=== PATIENT | female | born 1930 | race Caucasian/White ===

== ENCOUNTER 2018-08-16 19:28 | Inpatient (IN) | payer OTHER, MEDICAID ==
[~2018-08-16] VITALS: Ht 149.9 cm; Wt 36.3 kg
--- NOTE | 2018-08-16 19:48 | NUR ---
BIBDAUGHTER FROM HOME C/O "HANDS TURNING BLUE", C/O OF SOB AND DYSURIA; PT ALERT, AWAKE, NAD NOTED ,VSS, PENDING ER PROVIDER [place]
--- NOTE | 2018-08-16 20:00 | NUR ---
CALLED 'S OFFICE, AGUSTO UMANZOR NP PROJECT LEAD, TRANSFERRED CALL TO DR. RIVAS
[2018-08-16 20:23] LABS: BASOPHILS # (AUTO) 0.1 /CMM (0.0-0.2); EOSINOPHILS % (AUTO) 4.2 % (0.0-6.0); HEMATOCRIT 44 % (33-45); HEMOGLOBIN 14.4 g/dL (11.5-14.8); LYMPHOCYTES # (AUTO) 1.9 /CMM (0.8-4.8); LYMPHOCYTES % (AUTO) 24.3 % (20.0-44.0); MEAN CORPUSCULAR HGB CONC 33 g/dl (31.0-36.0); MEAN CORPUSCULAR VOLUME 94 fL (82-100); MONOCYTES # (AUTO) 0.6 /CMM (0.1-1.30); MONOCYTES % (AUTO) 8.3 % (2.0-12.0); NEUTROPHILS # (AUTO) 4.8 /CMM (1.8-8.9); NEUTROPHILS % (AUTO) 62.2 % (43.0-81.0); PLATELET COUNT (AUTO) 168 /CMM (150-450); RED BLOOD CELL COUNT(AUTO) 4.71 MIL/uL (4.0-5.2); WHITE BLOOD COUNT (AUTO) 7.7 K/uL (4.3-11.0)
[2018-08-16 21:40] LABS: CALCIUM, SERUM 8.9 mg/dL (8.5-10.1); CARBON DIOXIDE 28 mmol/L (21-32); CHLORIDE 109 mmol/L (98-107); CREATININE 1.7 mg/dL (0.6-1.3); GLUCOSE 82 mg/dL (74-106); POTASSIUM 5.1 mmol/L (3.5-5.1); SODIUM SERUM 144 mmol/L (136-145); UREA NITROGEN, BLOOD 28 mg/dL (7-18)
[2018-08-16 21:45] LABS: ALANINE AMINOTRANSFERASE 21 U/L (12-78); ALBUMIN 3.4 g/dL (3.4-5.0); ALKALINE PHOSPHATASE 118 U/L (46-116); ASPARTATE AMINOTRANSFERASE 14 U/L (15-37); BILIRUBIN,DIRECT 0.1 mg/dL (0.0-0.2); BILIRUBIN,TOTAL 0.3 mg/dL (0.2-1.0); TOTAL PROTEIN, SERUM 6.6 g/dL (6.4-8.2)
--- NOTE | 2018-08-16 22:14 | NUR ---
CALLED AGUSTO UMANZOR NP, LEFT MESSAGE ON VOICEMAIL
--- NOTE | 2018-08-16 22:20 | NUR ---
ON PHONE WITH AGUSTO UMANZOR NP.
[2018-08-16] MEDS ORDERED: IV NS 0.9% 1,000 ML BAG IV ONE (22:30)
--- NOTE | 2018-08-16 22:33 | NUR ---
CALLED NURSING SUP. FOR MS BED
[2018-08-16 22:36] LABS: APPEARANCE,URINE SL CLOUDY (CLEAR); BILIRUBIN,URINE 1+ (NEGATIVE); BLOOD, URINE NEGATIVE Ery/uL (NEGATIVE); COLOR,URINE YELLOW (YELLOW); KETONES,URINE TRACE (NEGATIVE); LEUKOCYTE ESTERASE ,URINE 1+ (NEGATIVE); NITRITE, URINE NEGATIVE (NEGATIVE); PROTEIN,URINE 1+ mg/dl (NEGATIVE); UGLUCOSE NEGATIVE (NEGATIVE); UROBILINOGEN,URINE 0.2 EU/dL (0.2)
[2018-08-16 22:44] LABS: BACTERIA,URINE Moderate /HPF (None Seen); SQUAMOUS EPITHELIAL CELL,UR Moderate /HPF (None Seen); WBC,URINE 51-80 /HPF (0-3)
[2018-08-17] MEDS ORDERED: APIX2.5T PO (00:27)
--- NOTE | 2018-08-17 00:37 | NUR ---
REPORT GIVEN TO EVELYN MARIE FOR JULI; PT WILL BE TRANSPORTED TO 3RD FLOOR VIA [facility]
[2018-08-17] MEDS ORDERED: CLONIDINE HCL 0.1 MG TABLET PO PRN (02:00)
--- NOTE | 2018-08-17 03:16 | NUR ---
EVELYN MS ADMITTING NOTES RECEIVED PT FROM ER VIA [facility] ACCOMPANIED BY TWO DAUGHTERS. PT AWAKE ALERT ORIENTEDX2-3, BREATHING EVEN AND UNLABORED ON ROOM AIR, NO COUGH, NO CONGESTION. NO COMPLAINT OF PAIN OR DISCOMFORT AT THIS TIME PER PT. BP 180/[address] GHOSH ACCPETEY SON THE L AC 20G SL PATENT AND FLUSHING. BED IN LOWERS LOCKED POSITION, CALL LIGHT WITHIN REACH AT THIS TIME, WILL CONTINUE TO MONITOR. Addendum: 08/17/18 at 0325 by FRANK WELCH RN NOTE FROM [id number]
--- NOTE | 2018-08-17 03:25 | NUR ---
NIKITA TORRES ORDERED CLONIDINE .1MG Q4HRS PRN, ADMINISTERED, BP NOW 140/80
[2018-08-17 03:34] VITALS: BP 192/87
--- NOTE | 2018-08-17 06:25 | NUR ---
PORTFOLIO LEAD CLOSING PT SLEEPING EASILY AROUSED TO TOUCH OR NAME CALL, BREATHING EVEN AND UNLABORED ON ROOM AIR, NO COUGH, NO CONGESTION. NO COMPLAINT OF PAIN OR DISCOMFORT AT THIS TIME PER PT. LAST BT OF . IV ACCES SON THE L AC 20G SL PATENT AND FLUSHING. BED IN LOWERS LOCKED POSITION, CALL LIGHT WITHIN REACH AT THIS TIME, WILL ENDORSE TO DAY NURSE FOR JULI
[2018-08-17 08:00] VITALS: BP 170/77
--- NOTE | 2018-08-17 08:00 | NUR ---
ROSTER CLERK AM NOTES RECEIVED PT AWAKE ALERT ORIENTEDX2-3, BREATHING EVEN AND UNLABORED ON ROOM AIR, NO COUGH, NO CONGESTION. NO COMPLAINT OF PAIN OR DISCOMFORT AT THIS TIME PER PT. BP 170/77 WITH L AC 20G SL INTACT,PATENT AND FLUSHING. BED IN LOWERS LOCKED POSITION, CALL LIGHT WITHIN REACH AT THIS TIME, WILL CONTINUE TO MONITOR.
[2018-08-17] MEDS: METOPROLOL TARTRATE 25 MG TABLET PO SCH ×2 (09:51→21:42)
[2018-08-17] MEDS: AMLODIPINE BESYLATE 10 MG TABLET PO SCH (09:52)
--- NOTE | 2018-08-17 12:00 | NUR ---
PT'S DTR WANTED PT TO BE DC'D TO SNF BECAUSE OF PT'S HEALTH CONDITION BEING A SMOKER AND HAS DEMENTIA.PT LIVES ALONE IN HER HOUSE AND IS AT RISK TO HAVE A FIRE IN HER HOUSE.DTR STATED THAT DR CORTEZ IS AWARE.
[2018-08-17 16:00] VITALS: BP 127/56
--- NOTE | 2018-08-17 17:15 | NUR ---
PT RESTING IN BED DENYING ANY PAIN OR DISTRESS.CALL LIGHT PLACED WITHIN REACH.
[2018-08-17] MEDS: CEFTRIAXONE 1 G in IV D5W 50 ML IV SCH (18:50)
--- NOTE | 2018-08-17 19:35 | NUR ---
RN OPENING NOTES RECEIVED REPORT FROM DAYSHIFT RN LYDIA. FOUND Pt AWAKE, RESTING IN BED COMFORTABLY. NO S/S OF ACUTE DISTRESS OR SOB NOTED. RESPIRATIONS EVEN AND UNLABORED. FAMILY VISITING AT BEDSIDE. Pt IS A/OX4, VERBAL, ABLE TO MAKE NEEDS KNOWN. NO C/O PAIN AT THIS TIME. Pt IS AMB WITH ASSIST WITH FWW. IV ACCESS ON LAC #20G, SL. SAFETY MEASURES IN PLACE. BED LOW, LOCKED, HOB ELEVATED, SIDE RAILS UP, CALL LIGHT AND BEDSIDE TABLE WITHIN REACH. WILL CONTINUE TO MONITOR Pt's CONDITION AND SAFETY THROUGHOUT THE NIGHT.
[2018-08-17 20:00] VITALS: BP 137/70
--- NOTE | 2018-08-18 07:00 | NUR ---
RN CLOSING NOTES NO SIGNIFICANT CHANGES IN Pt's CONDITION DURING THE NIGHT. Pt REMAINS STABLE PER BASELINE. NO S/S OF ACUTE DISTRESS OR SOB NOTED. Pt RESTING IN BED. RESPIRATIONS EVEN AND UNLABORED. ALL NEEDS MET AND ATTENDED TO. SAFETY MEASURES IN PLACE. WILL ENDORSE TO DAYSHIFT RN FOR Pt's JULI.
--- NOTE | 2018-08-18 07:10 | NUR ---
MS RN Opening Notes Patient awake, resting in bed. Semi-Fowlers position. Alert and oriented x3, able to make needs known. Episodes of mild forgetfulness. No complaints of shortness of breath or chest pain at this time. Respirations even and unlabored on room air, no acute distress noted. Peripheral IV to the left AC 20 gauge, intact, patent and saline locked. Updated patient on current plan of care and safety measures. Safety and fall precautions in place: bed in lowest and locked position, side rails up x2, bed alarm on, call light and personal possessions within reach. Will continue to monitor and intervene as needed.
[2018-08-18 08:00] VITALS: BP 172/82
[2018-08-18] MEDS: AMLODIPINE BESYLATE 10 MG TABLET PO SCH (08:48)
[2018-08-18] MEDS ORDERED: METOPROLOL TARTRATE 25 MG TABLET PO SCH (09:00)
[2018-08-18] MEDS ORDERED: AMLODIPINE BESYLATE 10 MG TABLET PO SCH (09:00)
[2018-08-18 15:38] VITALS: BP 136/73
[2018-08-18] MEDS: CEFTRIAXONE 1 G in IV D5W 50 ML IV SCH (17:12)
--- NOTE | 2018-08-18 18:00 | NUR ---
MS pressroom supervisor Notes Patient awake, resting in bed. Semi-Fowlers position. Alert and oriented x3, able to make needs known. Episodes of mild forgetfulness, poor recall. No complaints of shortness of breath or chest pain at this time. Respirations even and unlabored on room air, no acute distress noted. Peripheral IV to the right forearm 22 gauge, intact, patent and saline locked. No signs of symptoms of infiltration or phlebitis. Patient to have IV antibiotics at SNF, hard to place access, okay to discharge with PIV per MD. Photo of site taken, in chart. Skin assessment completed, sacrum intact, photos in chart. Ambulates with a FWW and assist, vital signs stable upon discharge. Discharge instructions and Exitcare given to patient/family, discharge instructions signed. Personal belongings accounted for and discharged with patient, confirmed via signature on belongings form. Patient left unit at 1800 with EMS for transport to [facility], report called at 1700 to Daniela, admitting RN. Patient assigned to room 3B. Fletcher, daughter of patient and next of kin, notified of transfer to facility.
== END 2018-08-18 18:10 | DRG 689 ==
LOC: ER 19:37 → MED 08-17 00:48 → TELE 08-17 02:18 → MED 08-17 16:23
PROVIDERS: ADMIT Internal Medicine; ATTEND Internal Medicine
DX: N39.0 Urinary tract infection, site not specified (principal); G93.41 Metabolic encephalopathy; N17.9 Acute kidney failure, unspecified; N18.4 Chronic kidney disease, stage 4 (severe); J44.9 Chronic obstructive pulmonary disease, unspecified; I12.9 Hypertensive chronic kidney disease with stage 1 through stage 4 chronic kidney disease, or unspecified chronic kidney disease; F02.80 Dementia in other diseases classified elsewhere, unspecified severity, without behavioral disturbance, psychotic disturbance, mood disturbance, and anxiety; G30.9 Alzheimer's disease, unspecified; F17.210 Nicotine dependence, cigarettes, uncomplicated; K21.9 Gastro-esophageal reflux disease without esophagitis; R53.1 Weakness; R00.1 Bradycardia, unspecified
CPT/HCPCS: 36415; 71045-TC; 80048-TC; 80076-TC; 81000-TC; 83605-TC; 84484-TC; 85025-TC; 85730-TC; 87081-TC; 87086-TC; 93970-TC; G0378; J0696; J7060

== ENCOUNTER 2019-11-13 19:18 | Emergency (ER) | payer MEDICARE, OTHER ==
[~2019-11-13] VITALS: Ht 157.5 cm; Wt 63.5 kg
[~2019-11-13 19:18] MED LIST: APIX2.5T PO
--- NOTE | 2019-11-13 19:34 | NUR ---
PT BIB PA WITH A C/O GLF FROM HER BED YESTERDAY. PT HIT HER HEAD WHEN SHE FELL. PT REFUSED TO GO TO THE HOSPITAL YESTERDAY AND PT'S MD WANTED TO HAVE HER MONITORED. PT STATED THAT SHE DID NOT FEEL WELL TODAY AND THAT IS WHY PT WAS TRANSPORTED TO THE ER. PT IS ALERT AND SPEAKING IN FULL SENCENES.
--- NOTE | 2019-11-13 19:40 | NUR ---
PT DENIES PAIN AT THIS TIME. BRUISE NOTED ON LEFT UPPER FOREHEAD.
--- NOTE | 2019-11-13 19:43 | NUR ---
PT REFUSED IV.
--- NOTE | 2019-11-13 19:47 | NUR ---
EDUCATION SPECIALIST IS AT THE BEDSIDE FOR BLOOD DRAW.
[2019-11-13 19:54] LABS: BASOPHILS # (AUTO) 0.1 /CMM (0.0-0.2); BASOPHILS % (AUTO) 0.6 % (0.0-2.0); EOSINOPHILS % (AUTO) 1.3 % (0.0-6.0); HEMATOCRIT 34 % (33-45); HEMOGLOBIN 10.5 g/dL (11.5-14.8); LYMPHOCYTES # (AUTO) 1.2 /CMM (0.8-4.8); LYMPHOCYTES % (AUTO) 11.5 % (20.0-44.0); MEAN CORPUSCULAR HGB CONC 31 g/dl (31.0-36.0); MEAN CORPUSCULAR VOLUME 88 fL (82-100); MONOCYTES # (AUTO) 0.7 /CMM (0.1-1.30); MONOCYTES % (AUTO) 6.5 % (2.0-12.0); NEUTROPHILS # (AUTO) 8.2 /CMM (1.8-8.9); NEUTROPHILS % (AUTO) 80.1 % (43.0-81.0); PLATELET COUNT (AUTO) 252 /CMM (150-450); RED BLOOD CELL COUNT(AUTO) 3.85 MIL/uL (4.0-5.2); WHITE BLOOD COUNT (AUTO) 10.2 K/uL (4.3-11.0)
--- NOTE | 2019-11-13 20:02 | NUR ---
PT LEFT FOR CT VIA RNEY
[2019-11-13 20:03] LABS: CALCIUM, SERUM 8.7 mg/dL (8.5-10.1); CARBON DIOXIDE 26 mmol/L (21-32); CHLORIDE 110 mmol/L (98-107); CREATININE 1.9 mg/dL (0.6-1.3); GLUCOSE 123 mg/dL (74-106); POTASSIUM 4.1 mmol/L (3.5-5.1); SODIUM SERUM 144 mmol/L (136-145); UREA NITROGEN, BLOOD 30 mg/dL (7-18)
--- NOTE | 2019-11-13 20:53 | NUR ---
YARI TORRES READ CT. READING NOW
--- NOTE | 2019-11-13 20:56 | NUR ---
PT'S DAUGHTER, DARWIN, CALLED. I TOLD HER THAT I WOULD CALL HER SISTER, VANNESSA, WHO IS LISTED THE PERSON TO CONTACT.
--- NOTE | 2019-11-13 20:56 | NUR ---
VOICE MESSAGE LEFT FOR VANNESSA.
--- NOTE | 2019-11-13 21:08 | NUR ---
CALLING PT'S DAUGHTER, VANNESSA, RE: UPDATE.
--- NOTE | 2019-11-13 21:44 | NUR ---
CALLED [facility] TRIP#[id number]
--- NOTE | 2019-11-13 21:44 | NUR ---
CALLING [facility]. SPOKE TO EVELYN MEDRANO RE: PT RETURNING.
--- NOTE | 2019-11-13 21:45 | NUR ---
CALLING PT'S DAUGHTER RE: PT RETURNING TO [facility].
--- NOTE | 2019-11-13 22:22 | NUR ---
PT REC'D WARM BLANKETS. PT APPEARS TO BE RESTING COMFORTABLY. WILL CONTINUE TO MONITOR THE PT.
--- NOTE | 2019-11-13 23:06 | NUR ---
PT APPEARS TO BE RESTING COMFORTABLY WITH NO S/S OF PAIN OR DISTRESS. WILL CONTINUE TO MONITOR THE PT.
--- NOTE | 2019-11-13 23:19 | NUR ---
CALLING [facility] RE: ETA. PER EDEL, TEAM IS ON SCENE FOR 5 MINS.
--- NOTE | 2019-11-13 23:24 | NUR ---
STILL WAITING FOR [facility] BODY MECHANIC TO COME INSIDE TO TRANSPORT THE PT BACK TO [facility].
--- NOTE | 2019-11-13 23:39 | NUR ---
CALLED [facility] RE: PAID SEARCH MARKETING STRATEGIST STILL HAVE NOT ARRIVED.
--- NOTE | 2019-11-13 23:52 | NUR ---
REPORT GIVEN TO EMT. PT IS LEAVING VIA [facility]. VSS.
[2019-11-13 23:54] VITALS: BP 112/56
== END 2019-11-13 23:54 | disposition home or self-care (01) ==
LOC: ER 19:19
DX: D64.9 Anemia, unspecified (principal); F03.90 Unspecified dementia, unspecified severity, without behavioral disturbance, psychotic disturbance, mood disturbance, and anxiety; J44.9 Chronic obstructive pulmonary disease, unspecified; K21.9 Gastro-esophageal reflux disease without esophagitis; I12.9 Hypertensive chronic kidney disease with stage 1 through stage 4 chronic kidney disease, or unspecified chronic kidney disease; N18.9 Chronic kidney disease, unspecified; F17.200 Nicotine dependence, unspecified, uncomplicated; Z79.899 Other long term (current) drug therapy; W19.XXXA Unspecified fall, initial encounter; Y93.89 Activity, other specified; Y92.89 Other specified places as the place of occurrence of the external cause; Y99.8 Other external cause status
CPT/HCPCS: 36415; 70450-TC; 70486-TC; 72125-TC; 80048-TC; 85025-TC; 85730-TC

== ENCOUNTER 2019-11-21 17:45 | Inpatient (IN) | payer MEDICARE, OTHER ==
[~2019-11-21] VITALS: Ht 152.4 cm; Wt 39.0 kg
--- NOTE | 2019-11-21 17:50 | NUR ---
MIGUEL ESQUEDA FROM [facility], SENT BY DR CORTEZ FOR ABNORMAL LABS WBC 11.97 BUN 44 CREA 1.87 TAKEN YESTERDAY, GENERALIZED BODY WEAKNESS AND FAILURE TO THRIVE, PER REPORT PATIENT TESTED FOR COVID LAST 11/15, NEGATIVE RESULT OUT BY 11/18. TO ER BED 9, HOOKED TO MONITOR, CHANGED TO HOSP GOWN, WARM BLANKET PROVIDED, PATIENT CAME IN ON O2 VIA NC AT 2LPM. AAO x1, BREATHING EVEN AND UNLABORED, NOT IN DISTRESS. DR ROMAN AT BEDSIDE FOR EVAL.
--- NOTE | 2019-11-21 18:10 | NUR ---
DAUGHTER VANNESSA CALLED TO FIND OUT STATUS OF PT. ADVISED WE WILL CALL HER ONCE WE HAVE MORE INFORMATION. NUMBER IS PROVIDED IN EMR UNDER CONTACTS.
[2019-11-21 18:16] LABS: BASOPHILS # (AUTO) 0.1 /CMM (0.0-0.2); BASOPHILS % (AUTO) 0.6 % (0.0-2.0); EOSINOPHILS % (AUTO) 0.8 % (0.0-6.0); HEMATOCRIT 37 % (33-45); HEMOGLOBIN 11.2 g/dL (11.5-14.8); LYMPHOCYTES # (AUTO) 0.9 /CMM (0.8-4.8); LYMPHOCYTES % (AUTO) 7.6 % (20.0-44.0); MEAN CORPUSCULAR HGB CONC 30 g/dl (31.0-36.0); MEAN CORPUSCULAR VOLUME 89 fL (82-100); MONOCYTES # (AUTO) 0.4 /CMM (0.1-1.30); MONOCYTES % (AUTO) 3.7 % (2.0-12.0); NEUTROPHILS # (AUTO) 10.1 /CMM (1.8-8.9); NEUTROPHILS % (AUTO) 87.3 % (43.0-81.0); PLATELET COUNT (AUTO) 210 /CMM (150-450); WHITE BLOOD COUNT (AUTO) 11.6 K/uL (4.3-11.0)
--- NOTE | 2019-11-21 18:28 | NUR ---
URINE SAMPLE COLLECTED VIA STRAIGHT CATHETER, SENT SAMPLE TO LAB
[2019-11-21] MEDS ORDERED: IV NS 0.9% 500 ML BAG IV ONE (18:30)
[2019-11-21 18:32] LABS: APPEARANCE,URINE Clear (CLEAR); BILIRUBIN,URINE SMALL (NEGATIVE); BLOOD, URINE Negative Ery/uL (NEGATIVE); COLOR,URINE Orange (YELLOW); KETONES,URINE Negative (NEGATIVE); LEUKOCYTE ESTERASE ,URINE Negative (NEGATIVE); NITRITE, URINE Positive (NEGATIVE); PROTEIN,URINE 30 mg/dl (NEGATIVE); UGLUCOSE Negative (NEGATIVE)
[2019-11-21 18:33] LABS: ALANINE AMINOTRANSFERASE 28 U/L (12-78); ALBUMIN 2.5 g/dL (3.4-5.0); ALKALINE PHOSPHATASE 91 U/L (46-116); ASPARTATE AMINOTRANSFERASE 43 U/L (15-37); BILIRUBIN,DIRECT 0.4 mg/dL (0.0-0.2); BILIRUBIN,TOTAL 0.6 mg/dL (0.2-1.0); CALCIUM, SERUM 9.5 mg/dL (8.5-10.1); CARBON DIOXIDE 26 mmol/L (21-32); CHLORIDE 110 mmol/L (98-107); CREATININE 2.3 mg/dL (0.6-1.3); GLUCOSE 151 mg/dL (74-106); LIPASE 189 U/L (73-393); SODIUM SERUM 145 mmol/L (136-145); TOTAL PROTEIN, SERUM 7.3 g/dL (6.4-8.2); UREA NITROGEN, BLOOD 56 mg/dL (7-18)
[2019-11-21] MEDS ORDERED: MEMA10TA PO (18:40)
[2019-11-21] MEDS ORDERED: ACET325T53 PO (18:40)
[2019-11-21] MEDS ORDERED: CYAN100096 PO (18:40)
[2019-11-21] MEDS ORDERED: MAGN400O6 PO (18:40)
[2019-11-21] MEDS ORDERED: BISA10SU61 RC (18:40)
[2019-11-21] MEDS ORDERED: AMLO10TA4 PO (18:40)
--- NOTE | 2019-11-21 18:48 | NUR ---
PAGEEtta MAR OFFICE FOR SLEEVE SETTER ADMISSION
--- NOTE | 2019-11-21 18:52 | NUR ---
CALLED NURSING SUP FOR ISO TELE BED.
[2019-11-21 18:58] LABS: BACTERIA,URINE Many /HPF (None Seen); RBC,URINE 0-2 /HPF (0-2); SQUAMOUS EPITHELIAL CELL,UR Few /HPF (None Seen)
[2019-11-21 18:59] LABS: MUCUS,URINE Rare /LPF (None Seen)
[2019-11-21] MEDS ORDERED: IV NS 0.9% 1,000 ML BAG IV ONE (19:00)
[2019-11-21] MEDS ORDERED: PIPERACILLIN /TAZOBACTAM 3.375 G VIAL IV ONE (19:00)
[2019-11-21] MEDS ORDERED: PIPERACILLIN /TAZOBACTAM 3.375 G in IV D5W 50 ML IV ONE (19:00)
--- NOTE | 2019-11-21 19:31 | NUR ---
GOLDSTEIN SWAB SENT TO LAB
--- NOTE | 2019-11-21 20:33 | NUR ---
PER SUZIE, CALL BACK FOR REPORT
--- NOTE | 2019-11-21 20:50 | NUR ---
REPORT GIVEN TO EVELYN VARGAS
[2019-11-21 21:00] VITALS: BP 117/53
--- NOTE | 2019-11-21 21:00 | NUR ---
HIGH SCHOOL BAND DIRECTORLOADING SHOVEL OILER NOTE RECEIVED PATIENT VIA GURNEY. PATIENT TRANSFERRED TO BED. A/OX1-2. ON OXYGEN 2L/MIN VIA NASAL CANNULA. RESPIRATION ARE EVEN AND UNLABORED. NO S/S SOB NOTED. NO C/O PAIN. IV ACCESS IN RAC#20 PATENT AND SALINE LOCKED. EXTERNAL TELE MONITOR READS SINUS RHYTHM HR 84. IN NO APPARENT DISTRESS. SCENE PAINTER OBTAINED BELONGINGS LIST AND VITAL SIGNS. INATAL PHYSICAL ASSESSMENT PERFORMED AT THIS TIME. SKIN ASSESSMENT PERFORMED. SKIN INTACT. BED IS LOW AND LOCKED, HOB ELEVATED IN SEMI FOWLERS, SIDE RIALS UP X2. CALL LIGHT WITHIN REACH. WILL CONTINUE TO MONITOR.
--- NOTE | 2019-11-21 21:05 | NUR ---
PT TRANSFERRED TO ROOM IN STABLE CONDITION
--- NOTE | 2019-11-21 22:02 | NUR ---
MANUAL MACHINIST NOTE CALLED ON DR. MAR OFFICE TO RECEIVE ADMITTING ORDERS. TELEPHONE ORDER: SWALLOW EVAL, NPO UNTIL SWALLOW EVAL. D51/2NS@75ML/HR. AM LABS: CBC,BMP,TSH,LIPIDS, HA1C, LACTIC ACID. 2D ECHO, CIPRO 400G Q12HR. ORDERS READ BACK NOTED AND CARRIED OUT.
[2019-11-21] MEDS ORDERED: CIPROFLOXACIN IV RTU 400 MG in PREMIX 1 EA IV SCH (23:00)
[2019-11-21] MEDS ORDERED: IV D5/0.45 NACL 1,000 ML IV ONE (23:00)
[2019-11-21] MEDS ORDERED: CIPROFLOXACIN IV RTU 200 ML IV ONE (23:45)
[2019-11-22] VITALS: BP 136/69
[2019-11-22 06:30] LABS: BASOPHILS % (AUTO) 0.3 % (0.0-2.0); EOSINOPHILS % (AUTO) 1.7 % (0.0-6.0); HEMATOCRIT 34 % (33-45); HEMOGLOBIN 10.2 g/dL (11.5-14.8); LYMPHOCYTES # (AUTO) 0.8 /CMM (0.8-4.8); LYMPHOCYTES % (AUTO) 8.4 % (20.0-44.0); MEAN CORPUSCULAR HGB CONC 30 g/dl (31.0-36.0); MEAN CORPUSCULAR VOLUME 89 fL (82-100); MONOCYTES # (AUTO) 0.4 /CMM (0.1-1.30); MONOCYTES % (AUTO) 4.5 % (2.0-12.0); NEUTROPHILS % (AUTO) 85.1 % (43.0-81.0); PLATELET COUNT (AUTO) 180 /CMM (150-450); RED BLOOD CELL COUNT(AUTO) 3.76 MIL/uL (4.0-5.2); WHITE BLOOD COUNT (AUTO) 9.4 K/uL (4.3-11.0)
[2019-11-22 07:10] LABS: CALCIUM, SERUM 8.2 mg/dL (8.5-10.1); CARBON DIOXIDE 23 mmol/L (21-32); CHLORIDE 110 mmol/L (98-107); CREATININE 1.9 mg/dL (0.6-1.3); GLUCOSE 100 mg/dL (74-106); POTASSIUM 3.7 mmol/L (3.5-5.1); SODIUM SERUM 144 mmol/L (136-145); UREA NITROGEN, BLOOD 44 mg/dL (7-18)
[2019-11-22 07:15] LABS: CHOLESTEROL 115 mg/dL (<200); HDL CHOLESTEROL 36 mg/dL (40-60); LDL 61 mg/dL (0-99); THYROID STIMULATING HORMONE 0.796 uIU/mL (0.358-3.74); TRIGLYCERIDES 116 mg/dL (30-150)
[2019-11-22 08:00] VITALS: BP 118/68
--- NOTE | 2019-11-22 09:05 | NUR ---
Received a call from dr. Greene. New orders : [facility] lab; 5000 heparin SQ , Zosyn and Vanco dosing per pharmacy. Dr Greene notified that home med reconciliation has not done. Per dr. Greene he will do it after swallow evaluation Addendum: 11/22/19 at 1628 by GEMA FERMIN RN per dr. Greene hold all home meds for now
[2019-11-22] MEDS: HEPARIN SODIUM, PORCINE 5000 UNITS/1 ML VIAL SQ SCH ×2 (09:21→21:59)
[2019-11-22] MEDS ORDERED: FEE PK DOSING 1 MIN EA MC ONE (09:34)
[2019-11-22] MEDS: VANCOMYCIN 500 MG in IV D5W 100ml IV SCH (10:36)
[2019-11-22] MEDS: ZOSYN IVPB 2.25 G in IV D5W 50ml IV SCH ×3 (11:57→23:37)
--- NOTE | 2019-11-22 16:29 | NUR ---
spoke with patients daughter;updated with plan of care
--- NOTE | 2019-11-22 18:46 | NUR ---
Patient resting in bed, alert and oriented x2.Breathing unlabored and even on O2 2L saturating 98%, afebrile. On droplet precaution for R/O COVID. A new IV line to the left arm g22 , fluid is running as ordered.Patient has no appetite.On TELE SR 80's. Patient kept clean and dry, repositioned per protocol. All needs attended.Will endorse to next shift for JULI
--- NOTE | 2019-11-22 19:55 | NUR ---
RN OPENING NOTE RECEIVED PT IN BED RESTING COMFORTABLY. AOX2. PATIENT IN NO S/SX OF ACUTE DISTRESS AT THIS TIME. PATIENT'S BREATHING IS EVEN AND UNLABORED. PATIENT IS ON 3 L OF OXYGEN VIA MASK; TOLERATING WELL. PATIENT ON TELE MONITOR READING SR, HR 83. NOTED IV SITE ON LEFT HAND G22 WITH D5 1/2 NS 1L RUNNING AT 75 ML/HR; PATENT AND FLUSHING WELL, NO S/S OF INFECTION OR INFILTRATION. SAFETY MEASURES IMPLEMENTED PER PROTOCOL. PATIENT BED ALARM IS ON. HEAD OF BED ELEVATED. BED IS LOCKED, IN LOWEST POSITION AND SIDE RAILS UP. CALL LIGHT WITHIN REACH OF THE PATIENT. WILL CONTINUE TO MONITOR AND REASSESS FOR ANY CHANGES.
[2019-11-22 20:00] VITALS: BP 131/61
[2019-11-22 20:31] VITALS: BP 131/61
--- NOTE | 2019-11-22 20:31 | NUR ---
TELEPHONE CALL FROM DAUGHTER, SPOKE WITH OWEN, STATED THEY WANT TO BE NOTIFIED OF ANY PROCEDURE TO BE DONE TO PATIENT-OWEN OR VANNESSA AT PHONE [phone]. ALSO WANTING TO SPEAK WITH ATTENDING MD TOMORROW. CHARGE NURSE INFORMED. WILL ENDORSE TO MORNING SHIFT.
[2019-11-22 20:51] VITALS: BP 131/61
[2019-11-23] VITALS (7 sets, daily range): BP systolic 105–147; BP diastolic 55–99
[2019-11-23] MEDS: ZOSYN IVPB 2.25 G in IV D5W 50ml IV SCH ×4 (05:25→23:11)
[2019-11-23 06:44] LABS: CALCIUM, SERUM 8.5 mg/dL (8.5-10.1); CARBON DIOXIDE 23 mmol/L (21-32); CHLORIDE 109 mmol/L (98-107); CREATININE 1.5 mg/dL (0.6-1.3); GLUCOSE 105 mg/dL (74-106); POTASSIUM 3.8 mmol/L (3.5-5.1); SODIUM SERUM 144 mmol/L (136-145); UREA NITROGEN, BLOOD 33 mg/dL (7-18)
--- NOTE | 2019-11-23 06:58 | NUR ---
RN CLOSING NOTE PATIENT REMAINS IN ROOM. NO SIGNS OF RESPIRATORY DISTRESS. SAFETY MEASURES IMPLEMENTED, BED IN LOWEST POSITION, LOCKED, SIDE RAILS UP, CALL LIGHT WITHIN REACH. ALL NEEDS AND ORDERS ADDRESSED DURING THE SHIFT. ALL DUE MEDS GIVEN ORDERED & SCHEDULED ; PATIENT TOLERATED WELL.PATIENT KEPT CLEAN AND COMFORTABLE WITHIN THE SHIFT. ENDORSED TO INCOMING SHIFT RN FOR CONTINUITY OF CARE.
--- NOTE | 2019-11-23 07:58 | NUR ---
RN OPENING NOTE RECEIVED PATIENT IN ROOM. NO SIGNS OF RESPIRATORY DISTRESS. SAFETY MEASURES IMPLEMENTED, BED IN LOWEST POSITION, LOCKED, SIDE RAILS UP, CALL LIGHT WITHIN REACH. WILL CONTINUITY MONITOR
[2019-11-23] MEDS: HEPARIN SODIUM, PORCINE 5000 UNITS/1 ML VIAL SQ SCH ×2 (09:08→21:00)
[2019-11-23] MEDS: VANCOMYCIN 500 MG in IV D5W 100ml IV SCH (11:42)
--- NOTE | 2019-11-23 13:03 | NUR ---
RN NOTES PT IS COVID NEGATIVE, RECEIVED HAND OFF REPORT FROM CASTILLO RN FOR JULI
--- NOTE | 2019-11-23 17:19 | NUR ---
RN NOTES SPOKE TO FAMILY MEMBER (DAUGHTER) UPDATED ON PLAN OF CARE.
--- NOTE | 2019-11-23 19:20 | NUR ---
RN CLOSING NOTE WILL ENDORSE TO PM NURSE.PT IS IN BED COMFORTABLE. NO SIGNS OF RESPIRATORY DISTRESS. SAFETY MEASURES IMPLEMENTED, BED IN LOWEST POSITION, LOCKED, SIDE RAILS UP, CALL LIGHT WITHIN REACH. ALL NEEDS AND ORDERS ADDRESSED DURING THE SHIFT.
--- NOTE | 2019-11-23 20:24 | NUR ---
RN NOTES: SPO2 CHECK 85%, KEPT BACK ON O2 INHALATION AT 2L/MIN,RECHECKED-95%, LOOKS COMFORTABLE, KEPT IN SEMI FOWLERS POSITION.CALL LIGHT WITHIN EASY REACH.
--- NOTE | 2019-11-23 22:51 | NUR ---
RN NOTES: RECEIVED AWAKE ON BED, A/OX1-2, ORIENTED TO UNIT AND STAFF, ABLE TO ESTABLISHED TRUST, TELE MONITOR SR-RATE-97,IV CANNULA ON THE LH G#22 KVO, SHE REMOVE HER O2 INHALATION IN BETWEEN , EDUCATE TO PUT IT ON, SHE NEEDS IT.NON LABORED BREATHING, NO SOB, KEPT ON CLOSE WATCH. FALL, SAFETY AND ASPIRATION PRECAUTION OBSERVED, BED LOW AND LOCKED, CALL LIGHT WITHIN EASY REACH. AFEBRILE.
[2019-11-24] VITALS: BP 126/76
[2019-11-24 04:00] VITALS: BP 142/91
[2019-11-24] MEDS: ZOSYN IVPB 2.25 G in IV D5W 50ml IV SCH ×4 (05:05→23:10)
[2019-11-24 06:48] LABS: CALCIUM, SERUM 8.2 mg/dL (8.5-10.1); CARBON DIOXIDE 24 mmol/L (21-32); CHLORIDE 111 mmol/L (98-107); CREATININE 1.7 mg/dL (0.6-1.3); GLUCOSE 102 mg/dL (74-106); POTASSIUM 3.8 mmol/L (3.5-5.1); SODIUM SERUM 143 mmol/L (136-145); UREA NITROGEN, BLOOD 30 mg/dL (7-18)
--- NOTE | 2019-11-24 07:37 | NUR ---
RN NOTES: ASLEEP IN THE NIGHT , NO RESPIRATORY DISTRESS, AFEBRILE, NO COUGH, BLOOD TEST DONE, TO F/U ECHO RESULT, ENDORSED FOR CONTINUITY OF CARE.
--- NOTE | 2019-11-24 07:40 | NUR ---
RN OPENING NOTES RECEIVED PT. IN BED. NO ACUTE DISTRESS NOTED. PT. A&OX1-2, WITH CONFUSION. PT. ON 2L O2 VIA NC, SATURATING WELL, >94%. PT. ON TELE MONITOR, SR NOTED. PT. L. HAND IV ACCESS, INTACT, PATENT, FLUSHED WELL. PT. SAFETY MAINTAINED. CALL LIGHT WITHIN REACH. WILL CONTINUE TO MONITOR
[2019-11-24 08:00] VITALS: BP 118/71
[2019-11-24] MEDS: VANCOMYCIN 500 MG in IV D5W 100ml IV SCH (09:02)
[2019-11-24] MEDS: HEPARIN SODIUM, PORCINE 5000 UNITS/1 ML VIAL SQ SCH ×2 (09:06→20:35)
[2019-11-24 12:00] VITALS: BP 149/80
--- NOTE | 2019-11-24 14:24 | NUR ---
patient pulled out iv,unable to follow command,frequent checks done,fall risk precaution observed,neonatal icu coordinator able to place g22 right forearm.will do sitter if pulled iv again per eleuterio keen. sup notified.
[2019-11-24] MEDS ORDERED: IV NS 0.9% 1,000 ML IV PRN (15:00)
[2019-11-24 16:00] VITALS: BP 136/72
--- NOTE | 2019-11-24 16:33 | NUR ---
patient calmer now ,resting, no acute distress,fall risk precaution observed,secure iv site with kerlix to avoid pulling it out,will continue to monitor.
--- NOTE | 2019-11-24 18:52 | NUR ---
RN CLOSING NOTES PT. IN BED. NO ACUTE DISTRESS NOTED. PT. A&OX1-2, WITH CONFUSION. PT. ON 2L O2 VIA NC, SATURATING WELL, 97%. PT. ON TELE MONITOR, SR NOTED. PT. R. FA IV ACCESS, INTACT, PATENT, FLUSHED WELL. PT. SAFETY MAINTAINED. CALL LIGHT WITHIN REACH. WILL ENDORSE PLAN OF CARE TO ONCOMING NURSE FOR CONTINUITY OF CARE
--- NOTE | 2019-11-24 19:45 | NUR ---
REVERSAL PRINT INSPECTOR: PT A/O X2, ON 2L OXYGEN VIA NC CONNECTED TO CONTINUOUS PULSE OXIMETRY, COORDINATE WITH EWELINA FELIZ, PT HAVE EPISODE OF REMOVING OXYGEN AND PT DESAT LOW 90'S ON RA, PATIENT EXPERIENCE COORDINATOR WILL SIT IN THE PT'S ROOM AFTER MAKING HER ROUNDS/VITAL SIGNS, ALTERNATING WITH RN. PT ALSO PLACED ON ASPIRATION PRECAUTIONS, PUREED DIET, EVALUATED BY SPEECH/SWALLOW EVAL, RECOMMENDS PUREED DIET WITH STRICT ASPIRATION PRECAUTIONS. PT CURRENTLY ON IVF NS AT 60ML/HR. SAFETY PRECAUTIONS FOR FALL INITIATED, CALL LIGHT IN REACH, WILL CONTINUE MONITORING PT.
[2019-11-24 20:00] VITALS: BP 133/69
--- NOTE | 2019-11-24 20:36 | NUR ---
rn notes: spoked with pt's grand daughter, and she would like to speak with the pt, transferred the call to pt's room, hand over the phone to the pt, but pt told the grand daughter, "im sleepy, dont want to talk right now". rn more than willing to give update to family however grand daughter said, she just wants to speak with the pt herself.
[2019-11-25] VITALS: BP_SYST 134; BP_SYST 146; BP_DIAS 69; BP_DIAS 70
[2019-11-25 04:00] VITALS: BP 118/75
[2019-11-25] MEDS: ZOSYN IVPB 2.25 G in IV D5W 50ml IV SCH ×3 (05:05→17:17)
--- NOTE | 2019-11-25 06:47 | NUR ---
end of shift report: pt remains on 2l oxygen via nc, remains to be tachypneic rr 21-22, connected to continuous pulse oximetry, spo2 right now is 98%, hr 77. pt remains a/o x1-2. iv access remains patent and flushing well, no s/s of iv infiltration noted. suction set up secured. iv atb administered as ordered. pt kept on aspiration precautions, pureed diet, but still with poor oral intake despite encouragement. remains afebrile. plan of care: per dr sevilla- hospice eval with [facility] once pt dc back to [facility]. vs remains stable, needs attended. safety precautions for fall remains engaged, call light in reach, will endorse to day rn for continuity of care.
--- NOTE | 2019-11-25 07:52 | NUR ---
M/S RN OPENING NOTES RECEIVED PT ON BED, ASLEEP YET EASILY AROUSABLE, A/O 1-2, RESPONSIVE TO STIMULI. RESPIRATION EVEN AND NON LABORED, AUDIBLE CRACKLES, NOT IN ACUTE RESPIRATORY DISTRESS, ON O2 AT 2LPM VIA N/C SATING 93%. ABD SOFT AND NON DISTENDED WITH ACTIVE BOWEL SOUNDS, ON DIAPER. SKIN WARM TO TOUCH AND DRY. PT DENIES PAIN AND DISCOMFORT. IV SITE AT RFA #22, WITH PRN NS AT 60 ML/HR. BED IN LOW LOCKED POSITION, SR X2 UP FOR SAFETY, BED ALARM ON, CALL LIGHT WITHIN REACH. PT ON STRICT ASPIRATION PRECAUTION, COORDINATED WITH PASSENGER SERVICE SUPERVISOR. COVID 19 NEGATIVE. WILL CONTINUE PLAN OF CARE.
[2019-11-25 08:00] VITALS: BP 138/71
[2019-11-25 08:09] VITALS: BP 138/71
[2019-11-25 08:11] LABS: CALCIUM, SERUM 7.8 mg/dL (8.5-10.1); CARBON DIOXIDE 24 mmol/L (21-32); CHLORIDE 111 mmol/L (98-107); CREATININE 1.5 mg/dL (0.6-1.3); GLUCOSE 83 mg/dL (74-106); POTASSIUM 3.4 mmol/L (3.5-5.1); SODIUM SERUM 143 mmol/L (136-145); UREA NITROGEN, BLOOD 25 mg/dL (7-18)
[2019-11-25] MEDS: HEPARIN SODIUM, PORCINE 5000 UNITS/1 ML VIAL SQ SCH (09:20)
[2019-11-25] MEDS: POTASSIUM CL. PREMIX PERIPHER. 50 ML IV SCH ×2 (09:46→10:59)
[2019-11-25] MEDS ORDERED: VANCOMYCIN 0.75 GM in IV D5W 250 ML IV SCH (11:00)
--- NOTE | 2019-11-25 13:21 | NUR ---
M/S RN NOTES REPORT GIVEN TO MAIN RIVAS FROM [facility], ETA 6PM ARRANGED BY [facility] WITH [facility]. ASHLEY RIVAS FROM [facility] ON BEDSIDE FOR HOSPICE EVAL.
[2019-11-25 16:00] VITALS: BP 150/80
[2019-11-25 16:13] VITALS: BP 150/80
--- NOTE | 2019-11-25 18:10 | NUR ---
M/S INDUSTRIAL SERVICER NOTES PT DISCHARGED TO [facility] ACCOMPANIED BY 2 EMT'S FROM [facility] VIA GURNEY. PT A/O 1-2, CONFUSED, SHOUTING SHE DOESN'T WANT TO GO, ABLE TO REDIRECT, RESPONSIVE TO ALL STIMULI, OBEYS COMMAND. RESPIRATION EVEN AND NON LABORED WITH NO ACUTE RESPIRATORY DISTRESS, ON O2 AT 2LPM VIA N/C SATING 99%. ABD SOFT AND NON DISTENDED WITH ACTIVE BOWEL SOUNDS, YELLOW URINE OUTPUT, NO FOUL ODOR, LBM TODAY SOFT DARK BROWN. SKIN WARM TO TOUCH, DRY, AND INTACT VIA BODY CHECKED. PT HAS NO S/SX OF PAIN AND DISCOMFORT. IV SITE REMOVED PER PROTOCOL. REPORT GIVEN TO EMT BY CHARGE NURSE DOYLE. FAMILY MEMBER, VANNESSA (DAUGHTER) NOTIFIED ABOUT THE TRANSFER/DISCHARGE. ALL CONCERNS ATTENDED. PT LEFT IN MEDICALLY STABLE CONDITION, NO JULI TODAY AND CONTINUE WITH HOSPICE CARE PER MD ORDER AT SNF.
== END 2019-11-25 18:23 | disposition hospice, home (50) | DRG 177 ==
LOC: ER 17:48 → TELE1 20:27 → MEDSG1 11-24 14:27
PROVIDERS: ADMIT Internal Medicine; ATTEND Internal Medicine
DX: J69.0 Pneumonitis due to inhalation of food and vomit (principal); J96.90 Respiratory failure, unspecified, unspecified whether with hypoxia or hypercapnia; N17.0 Acute kidney failure with tubular necrosis; J44.0 Chronic obstructive pulmonary disease with (acute) lower respiratory infection; Z68.1 Body mass index [BMI] 19.9 or less, adult; G30.9 Alzheimer's disease, unspecified; F02.80 Dementia in other diseases classified elsewhere, unspecified severity, without behavioral disturbance, psychotic disturbance, mood disturbance, and anxiety; Z87.891 Personal history of nicotine dependence; R62.7 Adult failure to thrive; M62.84 Sarcopenia; Z66 Do not resuscitate; Z79.01 Long term (current) use of anticoagulants; K21.9 Gastro-esophageal reflux disease without esophagitis; I10 Essential (primary) hypertension; R63.4 Abnormal weight loss
CPT/HCPCS: 36415; 71045-TC; 80048-TC; 80061-TC; 80076-TC; 80202-TC; 81000-TC; 83605-TC; 83615-TC; 83690-TC; 84443-TC; 84484-TC; 85025-TC; 85730-TC; 87040-TC; 87081-TC; 87086-TC; 87186-TC; 92526; 92611-TC; 93307-TC; A4216; G0378; J0744; J1644; J2543; J3370; J3480; J3490; J7030; J7040; J7050; J7060; U0003-CS